=== PATIENT | female | born 1950 | race Caucasian/White ===

== ENCOUNTER → 2020-08-19 | Outpatient (CLI) | payer OTHER | LOC: ULTRA 09:26 | PROVIDERS: ATTEND Internal Medicine | DX: E04.1 Nontoxic single thyroid nodule (principal) ==

== ENCOUNTER → 2021-05-27 | Outpatient (CLI) | payer OTHER ==
--- NOTE | 2021-05-28 13:08 | PATH ---
[facility] [address] [place] [address] PATHOLOGY RPT PROCEDURE Name: OLIMPIA CALLE Room #: REG ROCAEL Minaya.#: [id number] Admission: 05/27/21 Date of : 52 Discharge: Report #: [id number] Path Case #: [id number] Note [facility] Accession Number: [id number] TESTS RESULT FLAG UNITS REF RANGE LAB Clinician Provided Cytology Information No. of containers..01 Other (Miscellaneous) Source: RT THYROID FNA DIAGNOSIS: RT THYROID FNA NEGATIVE FOR MALIGNANT CELLS. RED BLOOD CELLS ARE PRESENT. COLLOID IS PRESENT. THIS INTERPRETATION INCLUDES EVALUATION OF A CELL BLOCK. Comment: [place] category- benign Smears cosisits of thyroid follicular cells in macrofollicular arrangement,colloid and histiocytes. Favor a benign adenomatoid nodule. Signed out by: 02 Angélica James MD, Pathologist NPI- [id number] Performed by: Anastacio West, [employer] ([facility]) Gross description: 30, RED, CLEAR /LCS 05/27/2021 1705 Local FLAG LEGEND: L-Low Normal,H-High Normal,LL-Alert Low,HH-Alert High <-Panic Low,>-Panic High,A-Abnormal,AA-Critical Abnormal Performed at: [address] [place] [address] Wilfrid Lacey MD, [address] [id number] Grace Gamez MD, Specimen Comment: A courtesy copy of this report has been sent to [phone] Specimen Comment: Report sent to Performed at: [address], [place], [place] [id number] MD Wilfrid Lacey MD Phone: [phone]
== END ==
LOC: ULTRA 09:52
PROVIDERS: ATTEND Internal Medicine
DX: E04.1 Nontoxic single thyroid nodule (principal); Z98.890 Other specified postprocedural states; Z79.899 Other long term (current) drug therapy; Z88.8 Allergy status to other drugs, medicaments and biological substances